=== PATIENT | male | born 1995 | race Caucasian/White ===

== ENCOUNTER 2021-06-13 19:42 | Emergency (ER) | payer SELFPAY ==
--- NOTE | ~2021-06-13 | CT_ITS ---
EXAMINATION: CT ABDOMEN AND PELVIS WITH CONTRAST CLINICAL INFORMATION: diffuse discomfort, distention COMPARISON: None TECHNIQUE: Multidetector volumetric images were obtained from the superior aspect of the liver through the pubic symphysis following administration 85 mL of Omnipaque 350 intravenous contrast. Sagittal and coronal reformatted images were obtained on the technologist's workstation. Oral contrast: No This CT examination was performed using dose optimization techniques as appropriate, variously including the following: *Automated exposure control *Adjustment of mA and/or kV according to patient size (this includes techniques or standardized protocols for targeted exams where dose is matched to indication/reason for exam; i.e. extremities or head) *Use of iterative reconstruction technique DLP: 933 mGy-cm FINDINGS: LUNG BASES: The visualized lung bases are unremarkable. LIVER, GALLBLADDER, AND BILIARY TREE: The liver is normal in size, shape, and attenuation. No focal hepatic lesion or biliary ductal dilatation is present. The gallbladder is unremarkable with no evidence of radiopaque gallstones, gallbladder wall thickening, or obvious pericholecystic inflammatory changes. PANCREAS: Unremarkable. SPLEEN: Unremarkable. ADRENAL GLANDS: Unremarkable. KIDNEYS AND URETERS: The kidneys are normal in size, shape, and attenuation. No hydronephrosis, hydroureter, or calculi seen. No perinephric stranding. BLADDER: Unremarkable. GASTROINTESTINAL TRACT: The small and large bowel are unremarkable. The appendix is unremarkable. MESENTERY: No inflammation. No mass. No ascites. ABDOMINAL WALL: No significant hernia is appreciated. LYMPH NODES: Normal. VASCULAR: Unremarkable. PELVIC VISCERA: Unremarkable. OSSEOUS STRUCTURES: Unremarkable. CT/CT abdomen pelvis w con IMPRESSION: No acute abnormality CT scan abdomen pelvis
--- NOTE | ~2021-06-13 | XR_ITS ---
EXAMINATION: XR ABDOMEN KUB CLINICAL INDICATION: Abdominal pain. History of constipation. COMPARISON: None TECHNIQUE: AP view of the abdomen. FINDINGS: The bowel gas pattern is normal with no evidence of ileus or obstruction. Small volume of scattered stool in colon. No evidence of constipation. No unusual soft tissue calcifications are noted. The bones are unremarkable. XR/XR KUB IMPRESSION: Small volume of scattered stool in colon. No evidence of constipation. Nonobstructive bowel pattern.
[2021-06-13 20:03] VITALS: BP 127/83; PULSE 78; RESP 15; TEMP 36.9; O2SAT 96; BMI 35.2
--- NOTE | 2021-06-13 21:02 | ED.ABDPAIN ---
HPI - Abdominal Pain General Chief Complaint: Abdominal Pain Stated Complaint: Constipated Time Seen by Provider: 06/13/21 21:02 Source: patient Mode of arrival: ambulatory History of Present Illness HPI narrative: 26-year-old male without significant past medical history other than complaints of constipation intermittently over the past 4 months, and despite 3 weeks of daily MiraLax is not getting relief and reports abdominal distension with prior nausea and vomiting but denies any in the past 2-3 days. Patient denies any prescription medications, and has tried Dulcolax over the past couple of days that he states has resulted in diarrhea without blood. Patient states he still feels bloated, distended with significant discomfort but denies any associated fevers, chills, nausea, vomiting, urinary pain/burning/frequency. In addition, patient complaint of right ear pain after swimming yesterday. Related Data Allergies Allergy/AdvReac Type Severity Reaction Status Date / Time No Known Allergies Allergy Unverified 07/16/20 17:07 [No Known Allergies*] Review of Systems Review of Systems Pertinent positives and negatives as stated in HPI 10 point review of systems otherwise negative. Physical Exam Vital Signs: Vital Signs: Last Vital Signs Temp 97.8 F 06/13/21 23:46 Pulse 64 06/13/21 23:46 Resp 16 06/13/21 23:46 BP 110/70 06/13/21 23:46 Pulse Ox 95 06/13/21 23:46 Body Mass Index 35.2 VITAL SIGNS: Reviewed. GENERAL: Well developed, well nourished, in no acute distress. HEAD: Normocephalic/atraumatic EYES: PERRLA, EOMI EARS: Ext canals without abnormality, TMs non-bulging and right ear with mild erythema erythema NOSE: Nares patent bilateral OROPHARYNX: no oral lesions noted, posterior pharynx clear LUNGS: Normal breath sounds. No adventitious sounds or accessory muscle use. SpO2<96> CARDIOVASCULAR: Regular rate and rhythm without noted murmurs ABDOMEN: Soft, diffuse discomfort on palpation without rebound, no palpable masses, body habitus limits exam, + bowel sounds. SKIN: Inspection of the skin reveals no rashes NEUROLOGIC: Alert and oriented x 4. Strength and sensation to light touch were grossly intact x 4. Course Course Course Narrative: 26-year-old male with history and clinical presentation of possible dyspepsia, IBS and on review of KUB there is demonstration of normal stool pattern and will evaluate with basic labs as well as CT scan to determine if there are anatomical features that may be contributing to patient's discomfort. Review of all investigations without acute findings, specifically there is no evidence to demonstrate constipation and patient was discharged in stable condition with instructions to engage in further discussions with his primary care provider regarding possible referral to Gastroenterology and further outpatient workup. MDM - Abdominal Pain Lab Data Result diagrams: 06/13/21 21:33 06/13/21 21:33 Labs: Lab Results 06/13/21 06/13/21 Range/Units 21:33 21:33 WBC 8.2 (4.8-10.8) X10*3/uL RBC 5.82 H (4.60-5.80) X10*6/uL Hgb 16.7 (14.0-18.0) g/dl Hct 48.1 (42-52) % MCV 82.6 (80-98) fL MCH 28.7 (27.0-33.0) pg MCHC 34.7 (31.0-36.0) g/dl RDW 12.1 (11.0-16.0) % Plt Count 181 (160-400) X10*3/uL MPV 11.6 (9.4-12.4) fL Immature Gran % (Auto) 0.2 (0.0-0.4) % Neut % (Auto) 52.4 (45-73) % Lymph % (Auto) 36.8 (20-40) % [place] % (Auto) 7.8 (2-11) % Eos % (Auto) 2.3 (0-4) % Baso % (Auto) 0.5 (0-2) % Lymph # (Auto) 3.0 (1.2-4.9) X10*3/uL [place] # (Auto) 0.6 (0.1-1.2) X10*3/uL Eos # (Auto) 0.2 (0.0-0.4) X10*3/uL Baso # (Auto) 0.0 (0.0-0.2) X10*3/uL Abs Immat Gran (auto) 0.02 (0.00-0.03) X10*3/uL Absolute Neuts (auto) 4.3 (2.0-8.3) X10*3/uL Absolute Nucleated RBC 0.000 (0.0-0.012) X10*3/uL Nucleated RBC % (auto) 0.0 (0.0-0.2) /100WBC Sodium 140 (135-145) mmol/L Potassium 3.8 (3.3-5.1) mmol/L Chloride 105 (96-108) mmol/L Carbon Dioxide 25 (22-29) mmol/L Anion Gap 14 (12-20) BUN 17 H (9-16) mg/dL Creatinine 1.13 (0.5-1.4) mg/dL Estim Creat Clear Calc 118.0 Estimated GFR > 60 Random Glucose 88 (60-115) mg/dL Calcium 8.9 (8.4-10.2) mg/dL Total Bilirubin 0.5 (0.0-1.0) mg/dL AST 18 (5-37) U/L ALT 21 (0-40) U/L Alkaline Phosphatase 75 (39-117) U/L Total Protein 7.2 (6.5-8.0) g/dL Albumin 4.3 (3.5-5.0) g/dL Lipase 33 (8-78) U/L Discharge Plan Discharge Clinical Impression: Abdominal discomfort Patient Disposition: Home, Self-Care Instructions: Abdominal Pain (ED) Additional Instructions: 1. Please follow-up with your primary care provider in the next 1-2 days for re-evaluation further outpatient management. 2. Stop taking medications for constipation as this is resulting in diarrhea and you have no evidence of constipation at this time. Return to the ER for acute worsening of symptoms. Referrals: Physician,Unknown [Primary Care Provider] - 2 days [facility] Past Medical History Source: nursing notes reviewed Medical History Seizure Social History Social History Alcohol intake: current Alcohol intake frequency: holidays/special occasions only Patient Tobacco Use Status: Never used Tobacco Use of substances other than those prescribed or required for medical reasons: No Advance Directives: No Advance Directives Information Provided: No
[2021-06-13 21:37] VITALS: BP 116/81; PULSE 73; RESP 18; TEMP 36.8; O2SAT 97
--- NOTE | 2021-06-13 21:38 | PC.NURSE ---
IV INSERTED, LABS DRAWN, VSS, PT AWAITING CT SCAN
[2021-06-13 21:43] LABS: MANUAL DIFF FLAG NO
[2021-06-13 21:48] LABS: Basophils Percent Auto 0.5 % (0-2); Eosinophils Absolute Auto 0.2 X10*3/uL (0.0-0.4); Eosinophils Percent Auto 2.3 % (0-4); Hematocrit 48.1 % (42-52); Hemoglobin 16.7 g/dl (14.0-18.0); Imm Gran Abs Auto 0.02 X10*3/uL (0.00-0.03); Imm Gran Pct Auto 0.2 % (0.0-0.4); Lymphocytes Percent Auto 36.8 % (20-40); Mean Corpuscular HGB Conc 34.7 g/dl (31.0-36.0); Mean Corpuscular Hemoglobin 28.7 pg (27.0-33.0); Mean Corpuscular Volume 82.6 fL (80-98); Mean Platelet Volume 11.6 fL (9.4-12.4); Monocytes Absolute Auto 0.6 X10*3/uL (0.1-1.2); Monocytes Percent Auto 7.8 % (2-11); Neutrophils Absolute Auto 4.3 X10*3/uL (2.0-8.3); Neutrophils Percent Auto 52.4 % (45-73); Platelet Count 181 X10*3/uL (160-400); Red Blood Count 5.82 X10*6/uL (4.60-5.80); Red Cell Distribution Width 12.1 % (11.0-16.0); White Blood Count 8.2 X10*3/uL (4.8-10.8)
[2021-06-13 22:16] LABS: Alanine Aminotransferase 21 U/L (0-40); Albumin Level 4.3 g/dL (3.5-5.0); Alkaline Phosphatase 75 U/L (39-117); Anion Gap 14 (12-20); Aspartate Amino Transferase 18 U/L (5-37); Bilirubin Total 0.5 mg/dL (0.0-1.0); Blood Urea Nitrogen 17 mg/dL (9-16); Calcium 8.9 mg/dL (8.4-10.2); Carbon Dioxide 25 mmol/L (22-29); Chloride 105 mmol/L (96-108); Estimated Glomerular Filt Rate > 60; Glucose Random 88 mg/dL (60-115); Lipase 33 U/L (8-78); Potassium 3.8 mmol/L (3.3-5.1); Sodium 140 mmol/L (135-145); Total Protein 7.2 g/dL (6.5-8.0)
[2021-06-13] MEDS: iohexoL 350 MG/ML 100 ML INFUS..BTL 85 ML IV (23:28)
[2021-06-13 23:46] VITALS: BP 110/70; PULSE 64; RESP 16; TEMP 36.6; O2SAT 95
== END 2021-06-14 00:12 | disposition home or self-care (01) ==
PROVIDERS: Emergency Provider Student in an Organized Health Care Education/Training Program
DX: K59.00 Constipation, unspecified (principal); R10.9 Unspecified abdominal pain
CPT/HCPCS: 36415; 74018; 74177; 80053; 83690; 85025; 99284; Q9967